=== PATIENT | male | born 1965 | race Caucasian/White ===

== ENCOUNTER 2018-01-03 14:01 | Emergency (ER) | payer OTHER ==
[~2018-01-03] VITALS: Ht 175.3 cm; Wt 77.1 kg
--- NOTE | 2018-01-03 15:36 | ED UPPER/LOWER EXTREMITY COMPL ---
History of Present Illness General Chief Complaint: Laceration Procedure Stated Complaint: LAC TO LEG Source: patient Exam Limitations: no limitations Vital Signs & Intake/Output Vital Signs & Intake/Output Vital Signs Date Time Temp Pulse Resp B/P B/P Pulse O2 O2 Flow FiO2 Mean Ox Delivery Rate 01/03 1601 98.7 56 16 152/70 99 Room Air 01/03 1406 98.3 70 18 149/91 98 Room Air Allergies Coded Allergies: NO KNOWN ALLERGIES (09/16/14) Triage Note: 52 YO MALE TO TRIAGE FOR EVAL OF LACERATION TO BACK OF L CALF. STATES HE WAS CHANGING A DOOR AND THE METAL FRAME OF THE DOOR FELL ONTO HIS LEG. NO ACTIVE BLEEDING. UNSURE OF LAST TETANUS. Triage Nurses Notes Reviewed? yes Onset: Abrupt Duration: minute(s): Timing: single episode today Severity: moderate Pain/Injury Location: Left: Leg. Method of Injury: laceration HPI: 52yo male presents to ED complaining of laceartions to left calf sustained at home prior to arrival. Patient states the metal frame of a sliding door fell and cut his calf in two locations. Patient applied bandage and presented here to ED. Patient is unsure of last tetanus vaccine. (Maegan Amos) Past History Travel History Traveled to [place] past 21 day No Medical History Any Pertinent Medical History? see below for history Cardiovascular: hyperlipidemia Gastrointestinal: GERD Surgical History Surgical History: non-contributory Psychosocial History What is your primary language Yi Tobacco Use: Never used Family History Hx Contributory? No (Maegan Amos) Review of Systems Review of Systems Constitutional: Reports: no symptoms. EENTM: Reports: no symptoms. Respiratory: Reports: no symptoms. Cardiovascular: Reports: no symptoms. Gastrointestinal/Abdominal: Reports: no symptoms. Genitourinary: Reports: no symptoms. Musculoskeletal: Reports: no symptoms. Skin: Reports: see HPI. Neurological/Psychological: Reports: no symptoms. Hematologic/Endocrine: Reports: no symptoms. Immunological: Reports: no symptoms. All Other Systems: Reviewed and Negative (Maegan Amos) Physical Exam Physical Exam General Appearance: well developed/nourished, no apparent distress, alert, awake Head: atraumatic, normal appearance Eyes: Bilateral: normal appearance. Ears, Nose, Throat: hearing grossly normal Neck: normal inspection, supple, full range of motion Cardiovascular/Respiratory: no respiratory distress Back: normal inspection, normal range of motion Leg Left: posterior calf: 2 linear lacerations into subcutaneous tissue, 3cm and 2.5 cm Neurologic/Tendon: normal sensation, normal motor functions, normal tendon functions Skin: lacerations as mentioned (Negrita PLEITEZ,Maegan Romero) Progress Differential Diagnosis: fracture, sprain, laceration, foreign body Plan of Care: Current Medications Sig/Chayito Start time Last Medication Dose Stop Time Status Admin Tetanus/Diphtheria 0.5 ML ONCE ONE 01/03 1545 AC 01/03 [facility]ox[facility]03 1546 [facility] Lacerations closed using sutures. Patient tolerated procedure well. Tetanus status updated today. Patient educated on signs and symptoms of skin infection. He will return for suture removal. He agrees with plan of care. (Maegan Amos) Departure Departure Disposition: HOME OR SELF CARE Condition: Stable Clinical Impression Primary Impression: Lacerations of multiple sites of left leg Qualifiers: Encounter type: initial encounter Qualified Codes: S81.812A - Laceration without foreign body, left lower leg, initial encounter; S86.922A - Laceration of unspecified muscle(s) and tendon(s) at lower leg level, left leg, initial encounter Referrals: La FRANSK,Aristides Avelar Additional Instructions: Return in 7-10 days for removal of stitches. Monitor for signs of infection including redness, swelling, increasing pain, return sooner if any of these symptoms or other concerns. Please note that there might be incidental findings in your evaluation that are unrelated to the current emergency department visit. Please notify your primary care doctor about this emergency department visit in order to obtain and review all of the testing performed so that these incidental findings can be monitored as needed. If you had an x-ray performed, please understand that some fractures may not be seen on the initial set of x-rays. If your symptoms persist you might need a repeat set of x-rays to check for such a fracture. If you had a laceration evaluated, please understand that foreign bodies such as glass or wood may not be visible to the naked eye or on plain x-rays. If the wound becomes red, swollen, increasingly more painful or if there is any drainage from the wound, please have it reevaluated by a physician for the possibility of a retained foreign body. If you're unable to follow up as outlined in the discharge instructions please return to the emergency department. Thank you for choosing the [facility] Emergency Department for your care. It was a pleasure to serve you today. Departure Forms: Customer Survey General Discharge Information (Negrita PLEITEZ,Maegan Romero) PA/FREIGHT SOLICITOR Co-Sign Statement Statement: ED Attending supervision documentation- [] I saw and evaluated the patient. I have also reviewed all the pertinent lab results and diagnostic results. I agree with the findings and the plan of care as documented in the PA's/FREIGHT SOLICITOR's documentation. [X] I have reviewed the ED Record and agree with the PA's/FREIGHT SOLICITOR's documentation. [] Additions or exceptions (if any) to the PAs/FREIGHT SOLICITOR's note and plan are summarized below: [] (Denny FRANKS,Geronimo Dior) Procedures Laceration/Wound Repair Laceration/Wound Repair: Wound Location: left lower extremity Wound's Depth, Shape: linear, subcutaneous Wound Length (cm): 3 Wound Explored: irrigated extensively Irrigated w/ Saline (ccs): 300 Betadine Prep? Yes Anesthesia: 1% lidocaine Volume Anesthetic (ccs): 6 Wound Repaired With: sutures Suture Size/Type: 4:0, nylon Number of Sutures: 11 Sterile Dressing Applied: Yes Date of Last Tetanus: 01/03/18 Tetanus Status: up to date Progress: 3CM laceration closed with 6 sutures. 2.5cm laceration closed with 5 sutures. Patient tolerated procedure well. (Maegan Amos)
[2018-01-03 16:01] VITALS: BP 152/70
== END 2018-01-03 16:02 ==
LOC: ERH 14:01
DX: S81.812A Laceration without foreign body, left lower leg, initial encounter (principal); W45.8XXA Other foreign body or object entering through skin, initial encounter; Y92.009 Unspecified place in unspecified non-institutional (private) residence as the place of occurrence of the external cause; Y93.9 Activity, unspecified
CPT/HCPCS: 90471; 90714

== ENCOUNTER 2018-01-12 08:20 | Emergency (ER) | payer OTHER ==
[~2018-01-12] VITALS: Ht 175.3 cm; Wt 77.1 kg
[2018-01-12 08:21] VITALS: BP 122/75
--- NOTE | 2018-01-12 08:36 | ED ANIMAL BITE/WOUND CHECK ---
History of Present Illness General Chief Complaint: Suture Removal/Wound Recheck Stated Complaint: SUTURE REMOVAL Source: patient Exam Limitations: no limitations Vital Signs & Intake/Output Vital Signs & Intake/Output ED Intake and Output 01/13 0000 01/12 1200 Intake Total Output Total Balance Patient 170 lb Weight Weight Reported by Patient Measurement Method Allergies Coded Allergies: NO KNOWN ALLERGIES (09/16/14) Triage Note: PT TO ED FOR SUTURE REMOVAL FROM BACK OF LEFT CALF AREA, PLACE 10 DAYS AGO. Triage Nurses Notes Reviewed? yes Onset: Abrupt Duration: day(s): (), better, continues in ED Timing: single episode today Injury Environment: home Is Injury an Animal Bite? No HPI: 51-year-old male presents for suture removal. He had been seen for a laceration to the back of the right calf 10 days ago 11 sutures were placed. Patient has been keeping the area clean and dry he denies any redness or discharge no pain or swelling. He feels it is healing well. (Jordan Smith) Past History Travel History Traveled to [place] past 21 day No Medical History Any Pertinent Medical History? see below for history Neurological: NONE EENT: NONE Cardiovascular: hyperlipidemia Respiratory: NONE Gastrointestinal: GERD Hepatic: NONE Renal: NONE Musculoskeletal: NONE Psychiatric: NONE Endocrine: NONE Blood Disorders: NONE Cancer(s): NONE INSPECTOR AND SORTER/Reproductive: NONE Tetanus Vaccine: 01/03/18 Surgical History Surgical History: non-contributory Psychosocial History What is your primary language Belarusian Tobacco Use: Never used ETOH Use: denies use Illicit Drug Use: denies illicit drug use Family History Hx Contributory? No (Jordan Smith) Review of Systems Review of Systems Constitutional: Reports: no symptoms. EENTM: Reports: no symptoms. Respiratory: Reports: no symptoms. Cardiovascular: Reports: no symptoms. GI: Reports: no symptoms. Genitourinary: Reports: no symptoms. Musculoskeletal: Reports: no symptoms. Skin: Reports: see HPI (LACERATION). Neurological/Psychological: Reports: no symptoms. Hematologic/Endocrine: Reports: no symptoms. Immunologic/Allergic: Reports: no symptoms. All Other Systems: Reviewed and Negative (Jordan Smith) Physical Exam Physical Exam General Appearance: well developed/nourished, no apparent distress, alert, awake Head: atraumatic, normal appearance Eyes: Bilateral: normal appearance, EOMI. Ears, Nose, Throat: hearing grossly normal Neck: normal inspection, supple, full range of motion Respiratory: no respiratory distress Back: normal inspection Extremities: normal range of motion, THERE ARE 2 2CM LINEAR VERTICAL LACERATIONS TO THE POSTERIORLEFT CALF. tHEY'RE WELL APPROXIMATED THERE IS NO SURROUNDING ERYTHEMA NO EXUDATE NO DISCHARGE. sUTURES ARE IN PLACE. Neurologic/Psych: no motor/sensory deficits, awake, alert, oriented x 3, normal gait, normal mood/affect Skin: intact, normal color, warm/dry (Jordan Smith) Progress Differential Diagnosis: abscess, cellulitis, joint infection, tenosysnovitis Plan of Care: Patient is here for suture removal. The lacerations appear well healed is no signs of infection. Sutures removed without difficulty. Steri-Strips were placed over the wounds TO prevent dehiscence. Discussed return precautions and wound care procedures patient agrees the plan (Jordan Smith) Departure Departure Disposition: HOME OR SELF CARE Condition: Stable Clinical Impression Primary Impression: Visit for suture removal Referrals: Unknown (PCP/Family) Additional Instructions: Keep area clean and dry. The Steri-Strips will come off on their own. Look out for signs of infection like redness swelling discharge or pain monitor your symptoms return with any concerns. Departure Forms: Customer Survey General Discharge Information (Jordan Smith) PA/REGULATION SUPERVISOR Co-Sign Statement Statement: ED Attending supervision documentation- [] I saw and evaluated the patient. I have also reviewed all the pertinent lab results and diagnostic results. I agree with the findings and the plan of care as documented in the PA's/REGULATION SUPERVISOR's documentation. [x] I have reviewed the ED Record and agree with the PA's/REGULATION SUPERVISOR's documentation. [] Additions or exceptions (if any) to the PAs/REGULATION SUPERVISOR's note and plan are summarized below: [] (Elizabeth FRANKS,[facility])
== END 2018-01-12 08:39 ==
LOC: ERH 08:20
DX: Z48.02 Encounter for removal of sutures (principal)